=== PATIENT | male | born 2000 | race American Indian/Alaskan Native ===

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

== ENCOUNTER 2022-05-06 13:31 | Emergency (ER) | payer MEDICAID ==
[2022-05-06 15:01] VITALS: BP 137/74; PULSE 59
== END 2022-05-06 16:10 | disposition home or self-care (01) ==
LOC: DL.ED 13:31
DX: S93.411A Sprain of calcaneofibular ligament of right ankle, initial encounter (principal); Z77.22 Contact with and (suspected) exposure to environmental tobacco smoke (acute) (chronic); X50.1XXA Overexertion from prolonged static or awkward postures, initial encounter
CPT/HCPCS: 73610-RT; 99282; 99283

== ENCOUNTER 2022-10-18 17:12 | Emergency (ER) | payer SELFPAY | END 2022-10-18 18:50 | LOC: DL.ED 17:12 | DX: Z53.21 Procedure and treatment not carried out due to patient leaving prior to being seen by health care provider (principal) ==

== ENCOUNTER 2022-12-16 06:31 | Emergency (ER) | payer SELFPAY ==
[2022-12-16 06:59] VITALS: BP 151/98; PULSE 100
[2022-12-16 08:53] LABS: APPEARANCE,URINE CLEAR (CLEAR); BILIRUBIN,URINE NEGATIVE (NEGATIVE); COLOR,URINE YELLOW (YELLOW); GLUCOSE,URINE NEGATIVE (NEGATIVE); KETONES,URINE NEGATIVE (NEGATIVE); LEUKOCYTE ESTERASE,URINE NEGATIVE (NEGATIVE); NITRITE,URINE NEGATIVE (NEGATIVE); OCCULT BLOOD,URINE TRACE-INTACT (NEGATIVE); PH,URINE 5.5 (5.0-9.0); PROTEIN,URINE 100 (NEGATIVE); UROBILINOGEN,URINE 0.2 mg/dL (0.2-1.0)
[2022-12-16 08:57] LABS: METHAMPHETAMINES,URINE NEGATIVE (NEGATIVE)
[2022-12-16 08:58] LABS: AMPHETAMINES,URINE NEGATIVE (NEGATIVE); BARBITURATES,URINE NEGATIVE (NEGATIVE); BENZODIAZEPINE,URINE NEGATIVE (NEGATIVE); MDMA (ECSTASY), URINE NEGATIVE (NEGATIVE); METHADONE,URINE NEGATIVE (NEGATIVE); OPIATES,URINE NEGATIVE (NEGATIVE); OXYCODONE,URINE NEGATIVE (NEGATIVE); PHENCYCLIDINE,URINE NEGATIVE (NEGATIVE); TCA,URINE NEGATIVE (NEGATIVE)
[2022-12-16 09:03] LABS: BACTERIA,URINE FEW /HPF (0-FEW/HPF); EPITHELIAL CELLS,URINE OCCASIONAL /HPF (NOT SEEN); MUCUS,URINE FEW /LPF (NOT SEEN); RBC,URINE 0-5 /HPF (0-5); WBC,URINE 0-5 /HPF (0-5/HPF)
[2022-12-16] MEDS ORDERED: Lidocaine 1% 5 ML VIAL INJECT ONE (09:03)
[2022-12-16] MEDS ORDERED: Diphtheria,Pertussis(Acell),Tetanus Vaccine 0.5 ML Syringe IM ONE (09:27)
== END 2022-12-16 09:49 | disposition home or self-care (01) ==
LOC: DL.ED 06:31
DX: S62.633A Displaced fracture of distal phalanx of left middle finger, initial encounter for closed fracture (principal); S01.01XA Laceration without foreign body of scalp, initial encounter; S01.81XA Laceration without foreign body of other part of head, initial encounter; F10.10 Alcohol abuse, uncomplicated; M54.2 Cervicalgia; Y90.7 Blood alcohol level of 200-239 mg/100 ml; Z23 Encounter for immunization; Z86.16 Personal history of COVID-19; Y04.0XXA Assault by unarmed brawl or fight, initial encounter
CPT/HCPCS: 12002; 12011; 36415; 70450; 70486; 72125; 72128; 73140-F2; 80305-QW; 80307; 81001; 90471; 90715; 99283; 99284-25; J3490

== ENCOUNTER 2023-08-02 17:49 | Emergency (ER) | payer OTHER ==
[2023-08-02 18:16] VITALS: BP 158/109; PULSE 92
[2023-08-02] MEDS: Acetaminophen 500 MG Tab PO ONE (18:28)
[2023-08-02] MEDS: Amoxicillin/Clavulanate K 875-125 MG Tab PO ONE (18:30)
== END 2023-08-02 18:32 | disposition home or self-care (01) ==
LOC: DL.ED 17:49
DX: J32.8 Other chronic sinusitis (principal); B96.89 Other specified bacterial agents as the cause of diseases classified elsewhere; Z86.16 Personal history of COVID-19; Z79.899 Other long term (current) drug therapy
CPT/HCPCS: 99282; 99283; A9270

== ENCOUNTER 2024-06-06 11:37 | Emergency (ER) | payer OTHER ==
[2024-06-06 12:18] VITALS: BP 149/103; PULSE 70
== END 2024-06-06 12:15 | disposition home or self-care (01) ==
LOC: DL.ED 11:37
DX: B34.9 Viral infection, unspecified (principal); Z86.16 Personal history of COVID-19; Z88.0 Allergy status to penicillin; Z88.1 Allergy status to other antibiotic agents
CPT/HCPCS: 87081; 87430; 99282; 99284

== ENCOUNTER 2024-07-04 20:22 | Emergency (ER) | payer OTHER ==
[2024-07-04 20:45] VITALS: BP 152/111; PULSE 86
[2024-07-04] MEDS: Bacitracin Oint 1 GM U/D Packet TOP ONE (21:36)
== END 2024-07-04 21:44 | disposition home or self-care (01) ==
LOC: DL.ED 20:22
DX: S60.221A Contusion of right hand, initial encounter (principal); Z88.0 Allergy status to penicillin; Z86.16 Personal history of COVID-19; W22.8XXA Striking against or struck by other objects, initial encounter; Y93.89 Activity, other specified
CPT/HCPCS: 29125; 73110; 99283; A9270; 99282